=== PATIENT | female | born 1995 ===

== ENCOUNTER 2021-02-09 07:53 | Emergency (ER) | payer OTHER, SELFPAY ==
[2021-02-09 08:16] VITALS: BP 135/82; PULSE 100; RESP 17; TEMP 36.1; O2SAT 99; BMI 37.3
--- NOTE | 2021-02-09 08:20 | ED_ITS ---
HPI - Wound/Laceration General Chief Complaint: Wound/Laceration Stated Complaint: cyst Time Seen by Provider: 02/09/21 08:16 Source: patient Mode of arrival: ambulatory Limitations: no limitations History of Present Illness HPI narrative: Patient comes emergency room complaining of an abscess in the right labia majora. Patient states it started approximately 5 days ago. Two days ago patient went to [facility], patient states that she was told that the cyst was not big enough for drainage, she was started on doxycycline. Patient states since then the abscess grew in size and is becoming more painful. Patie nt denies fever chills. Patient states this is the 2nd time she has had an abscess in the same area. Related Data Previous Rx's Medication Instructions Recorded cephalexin [Keflex] 750 mg PO BID #7 cap 02/09/21 Allergies Allergy/AdvReac Type Severity Reaction Status Date / Time Sulfa (Sulfonamide Allergy Rash Verified 02/09/21 08:16 Antibiotics) Review of Systems Review of Systems: Constitutional : No Weight loss, No Fever, No Chills, No Night Sweats, No Fatigue, No Malaise ENT/Mouth : No Hearing loss, No Ear Pain, No Nasal Congestion, No Sinus Pain, No Hoarseness, No sore throat, No Rhinorrhea, No Swallowing Difficulty Eyes: No Eye Pain, No Swelling, No Redness, No Foreign Body, No Discharge, No Vision Changes Cardiovascular : No Chest Pain, No SOB, No Dyspnea on Exertion, No Orthopnea, No Edema, No Palpitations Respiratory : No Cough, No Sputum, No Wheezing, No Smoke Exposure, No Dyspnea Gastrointestinal : No Nausea, No Vomiting, No Diarrhea, No Constipation, No abdominal Pain, No Hematochezia, No Melena Genitourinary : no irregular bleeding, No Dysuria, No Urinary Frequency, No Hematuria, No Urinary Incontinence, No Urgency, No Flank Pain, No Urinary Flow Changes, No Hesitancy, complaining of cyst in the right labia Musculoskeletal : No joint pain, No Myalgias, No Joint Swelling Skin : No Skin Lesions, No rash Neuro : No Weakness, No Numbness, No Paresthesias, No Loss of Consciousness, No Dizziness, No Headache Psych : No Anxiety/Panic, No Depression, No SI/HI/AH/VH, No Social Issues, Heme/Lymph: No Bruising, No Bleeding,No Lymphadenopathy Endocrine : No Polyuria, No Polydipsia, No Temperature Intolerance [facility] Social History Social History Advance Directives: No Advance Directives Information Provided: No Physical Exam Vital Signs: Vital Signs: Last Vital Signs Temp 97 F 02/09/21 08:16 Pulse 100 02/09/21 08:16 Resp 17 02/09/21 08:16 BP 135/82 02/09/21 08:16 Pulse Ox 99 02/09/21 08:16 Body Mass Index 37.3 Appearance: Alert. Oriented X3. No acute distress. Eyes: Pupils equal, round and reactive to light. ENT: Pharynx normal. Neck: Normal inspection. Neck supple. No lymph nodes noted. No crepitus CVS: Normal heart rate and rhythm. Pulses normal. Normal S1 and S2 Respiratory: No respiratory distress. Breath sounds normal. No Wheezing. No rales Abdomen: Soft and nontender. No rigidity. No distention. good BS x4 : 3 cm x 2 cm cm in the left labia, no draining, very tender to touch Skin: Skin warm and dry. Normal skin color. Normal skin turgor. Extremities: No lower extremity edema. No Lacerations. No Rash Neuro: Oriented X 3. No motor deficit. No sensory deficit. Moving all extermities. No slurred speech. Course Course Course Narrative: Patient tolerated well the procedure, patient instructed to follow-up with her PCP and OBGYN within 48 hours for wound check. Procedures Abscess I/D Site: other (Right labia majora) Side (if applicable): left Local Anesthetic: lidocaine 2% Amount of anesthesia used (mL): 20 Technique: incised with blade Amount of fluid expressed (mL): 20 Sent for culture/gram staining?: No Irrigation: Yes Packing used?: femi drain Discharge Plan Discharge Clinical Impression: Bartholin gland cyst Patient Disposition: Home, Self-Care Instructions: Bartholin Cyst (ED) Additional Instructions: Continue taking the doxycycline. Add cephalexin which was sent to pharmacy. Please call your OBGYN to schedule an appointment for wound check within 48 hours. Please follow-up with your primary care physician tomorrow. If you have any worsening or new symptoms, please return to the emergency room or call 911 Prescriptions: New cephalexin [Keflex] 750 mg capsule 750 mg PO BID Qty: 7 RF: 0
[2021-02-09] MEDS: Lidocaine HCl 2 % MPF 5 ML VIAL 10 ML INFILTRATI (09:41)
== END 2021-02-09 09:50 | disposition home or self-care (01) ==
PROVIDERS: Emergency Provider Emergency Medicine
DX: N76.4 Abscess of vulva (principal); N75.0 Cyst of Bartholin's gland
CPT/HCPCS: 56405; 99283; 99284

== ENCOUNTER 2023-10-25 15:22 | Emergency (ER) | payer OTHER, SELFPAY ==
--- NOTE | ~2023-10-25 | XR_ITS ---
EXAMINATION: XR CHEST CLINICAL INFORMATION: Productive cough for 5 days. COMPARISON: None available. TECHNIQUE: 2 views of the chest were obtained. FINDINGS: The cardiomediastinal silhouette is stable. There is no focal lung consolidation or pleural effusion. There is mild curvature of the thoracic spine convex to the right. Soft tissues are unremarkable. XR/XR chest 2V IMPRESSION: No active cardiopulmonary disease.
[2023-10-25 16:02] VITALS: BP 143/73; PULSE 87; RESP 20; TEMP 36.5; O2SAT 100; BMI 40.2
--- NOTE | 2023-10-25 16:02 | ED.GENADULT ---
HPI - General Adult General Chief complaint: Upper Respiratory Symptoms Stated complaint: cough ? rsv Source: patient Mode of arrival: ambulatory Limitations: no limitations History of Present Illness HPI narrative: Patient is a 28-year-old female presenting to the ED with complaint of productive cough since Sunday. States both of her daughters have recently tested positive for RSV. Denies fevers. Denies any other symptoms. complaint: cough Onset (ago): day(s) Location: chest Associated symptoms: denies other symptoms Treatments prior to arrival: none Related Data Previous Rx's Medication Instructions Recorded cephalexin 750 mg capsule (Keflex) 750 mg PO BID #7 caps 02/09/21 albuterol sulfate 90 mcg/actuation 2 puff inhalation Q4-6H PRN 10/25/23 aerosol inhaler shortness of breath or wheezing #6.7 grams benzonatate 100 mg capsule 100 mg PO TID PRN cough #14 caps 10/25/23 Allergies Allergy/AdvReac Type Severity Reaction Status Date / Time Sulfa (Sulfonamide Allergy Rash Verified 02/09/21 08:16 Antibiotics) Review of Systems Review of Systems: As per HPI Yes all other systems are reviewed and are negative Constitutional: Constitutional: Reports as per HPI [facility] Social History Social History Advance Directives: No Advance Directives Information Provided: No Physical Exam ED Vital Signs: Vital Signs - 24 hr 10/25/23 16:02 Temperature 97.7 F Pulse Rate 87 Respiratory Rate 20 Blood Pressure 143/73 H Pulse Oximetry 100 Oxygen Delivery Method Room Air BMI result Body Mass Index 40.2 Vital signs have been reviewed and appear to be correct. Blood pressure elevated. Heart rate normal. Respiratory rate normal. Temperature normal. Oxygen saturation normal. Const General: cooperative, healthy appearing and no acute distress Orientation/consciousness: oriented to person, oriented to place, oriented to time and patient oriented x3 Limitations: no limitations HENMT Head: Yes normocephalic and Yes atraumatic Ears: external ears normal General nose exam: Normal external nose present Face and sinus: Yes face symmetric Mouth: oropharynx normal and moist mucous membranes Throat: Yes uvula midline Eyes Pupils: Equal, round and reactive pupils present Neck Neck: Yes normal visual inspection and Yes supple Resp Effort & Inspection: normal respiratory effort and able to speak in complete sentences Auscultation: clear to auscultation bilaterally and wheezes scattered wheezes Cardio Rate: regular rate Rhythm: regular rhythm Heart sounds: S1 normal heart sound present and S2 normal heart sound present GI Palpation (GI): Soft to palpation and nontender Auscultation: normoactive bowel sounds General: Yes no CVA tenderness Back/Spine/Pelvis Back: no CVA tenderness Skin General skin exam: elasticity normal and turgor normal Neuro General: oriented to person, oriented to place, oriented to time, patient oriented x3, moves all extremities, no focal motor deficits and CN's II-XI intact bilaterally Cranial nerves: Yes Equal, round and reactive pupils present Cognition (Neuro): normal cognition Extrem General: Yes full ROM, Yes no pedal edema and Yes no calf tenderness Psych Mental Status: mental status grossly normal Affect: normal affect Thought process: Normal thought process present Medical Decision Making Medical Decision Making [facility] Narrative: Patient is a 28-year-old female presenting to the ED with complaint of productive cough since Sunday. On exam patient is awake, A+Ox3, VS WNL, afebrile, normal neurological exam without focal deficits, physical exam findings as above. Given reported symptoms and physical exam findings, initial differential includes viral illness, covid, flu, rsv, bronchitis, pneumonia. RSV swab positive, all others negative. No evidence of pneumonia on CXR. All results discussed with patient and all questions answered. Will prescribe benzonatate and albuterol inhaler. Instructed patient to wear a mask around others while symptomatic, ensure adequate rest, fluid intake, and follow up with PCP. Return precautions discussed. Patient verbalized understanding of and agreement with plan of care. Differential Diagnosis Differential Diagnoses: The differential diagnosis associated with the presentation includes As per [facility] Lab Data [facility] Lab Attestation statement: I reviewed the patient's lab results. As per [facility] Labs: Lab Results 10/25/23 Range/Units 16:48 Influenza Type A (PCR) NEGATIVE (Negative) Influenza Type B (PCR) NEGATIVE (Negative) RSV RNA Qual (PCR) POSITIVE A (Negative) SARS-CoV-2 RNA (RT-PCR) NEGATIVE (Negative) Independent Interpretation I performed an independent interpretation of an: Plain X-Ray Interpretation: No evidence of pneumonia Radiology Impression Discussion of test interpretation with radiology: I have reviewed the radiologist's reading. Radiologist Impression: XR/XR chest 2V IMPRESSION: No active cardiopulmonary disease. External Record Review External record reviewed: Inpatient record, Office record and Outpatient record Prescription Management I considered prescription management with: Other Discharge Plan Discharge Clinical Impression: RSV infection Patient Disposition: Home, Self-Care Instructions: Respiratory Syncytial Virus (ED) Additional Instructions: You were evaluated in the emergency department today for cough. Your Covid and flu tests were negative and your x-ray did not show evidence of pneumonia. Your symptoms are due to RSV which is a viral illness which will resolve on its own with time and rest. You should ensure adequate fluid intake, and can use Tylenol 650 mg or ibuprofen 600 mg every 6 hours as needed for fever or discomfort. Please follow-up with your primary care provider this week. Return to the emergency department if you develop chest pain, worsening shortness of breath, difficulty swallowing, fever 100.4? F or greater or any other concerning symptoms. Prescriptions: New benzonatate 100 mg capsule 100 mg PO TID PRN (Reason: cough) Qty: 14 0RF albuterol sulfate 90 mcg/actuation HFA aerosol inhaler 2 puff inhalation Q4-6H PRN (Reason: shortness of breath or wheezing) Qty: 6.7 0RF No Action cephalexin [Keflex] 750 mg capsule 750 mg PO BID Qty: 7 0RF Stand Alone Forms: Work/School Release
[2023-10-25 17:47] LABS: Influenza A PCR NEGATIVE (Negative); Influenza B PCR NEGATIVE (Negative); Resp Syncy Virus RNA Qual PCR POSITIVE (Negative); SARS COV2 PCR INHOUSE NEGATIVE (Negative)
== END 2023-10-25 19:04 | disposition home or self-care (01) ==
PROVIDERS: Registered Nurse Emergency; Emergency Provider Emergency Medicine
DX: J22 Unspecified acute lower respiratory infection (principal); B97.4 Respiratory syncytial virus as the cause of diseases classified elsewhere; R05.9 Cough, unspecified; Z20.822 Contact with and (suspected) exposure to COVID-19; Z20.828 Contact with and (suspected) exposure to other viral communicable diseases
CPT/HCPCS: 0241U; 71046; 99281; 99283

== ENCOUNTER 2024-03-07 18:01 | Emergency (ER) | payer OTHER, SELFPAY ==
[2024-03-07 18:19] VITALS: BP 99/60; PULSE 84; RESP 18; TEMP 37.2; O2SAT 98; BMI 36.9
--- NOTE | 2024-03-07 18:51 | ED.GENADULT ---
HPI - General Adult General Chief complaint: Skin/Abscess/Foreign Body Stated complaint: Cyst Time Seen by Provider: 03/08/24 00:19 Source: patient Mode of arrival: ambulatory Limitations: no limitations History of Present Illness HPI narrative: Patient comes to the emergency room complaining of a Bartholin cyst. Patient stated about 3 years ago she had a cyst in the same area. For the last 5 days, patient has noticed that there was an abscess growing in the right labia majora. However, on her way to the hospital, it popped by itself and it has been draining pus for the last couple of hours and the pain has significantly decreased. Patient denies fever chills Related Data Previous Rx's ?Medication ?Instructions ?Recorded cephalexin 750 mg capsule (Keflex) 750 mg PO BID #7 caps 02/09/21 albuterol sulfate 90 mcg/actuation 2 puff inhalation Q4-6H PRN 10/25/23 aerosol inhaler shortness of breath or wheezing #6.7 grams benzonatate 100 mg capsule 100 mg PO TID PRN cough #14 caps 10/25/23 Allergies Allergy/AdvReac Type Severity Reaction Status Date / Time Sulfa (Sulfonamide Allergy Rash Verified 03/07/24 18:22 Antibiotics) Review of Systems Review of Systems: Constitutional : No Weight loss, No Fever, No Chills, No Night Sweats, No Fatigue, No Malaise ENT/Mouth : No Hearing loss, No Ear Pain, No Nasal Congestion, No Sinus Pain, No Hoarseness, No sore throat, No Rhinorrhea, No Swallowing Difficulty Eyes: No Eye Pain, No Swelling, No Redness, No Foreign Body, No Discharge, No Vision Changes Cardiovascular : No Chest Pain, No SOB, No Dyspnea on Exertion, No Orthopnea, No Edema, No Palpitations Respiratory : No Cough, No Sputum, No Wheezing, No Smoke Exposure, No Dyspnea Gastrointestinal : No Nausea, No Vomiting, No Diarrhea, No Constipation, No abdominal Pain, No Hematochezia, No Melena Genitourinary : Complaining of an abscess in the right labia majora, no irregular bleeding, No Dysuria, No Urinary Frequency, No Hematuria, No Urinary Incontinence, No Urgency, No Flank Pain, No Urinary Flow Changes, No Hesitancy Musculoskeletal : No joint pain, No Myalgias, No Joint Swelling Skin : No Skin Lesions, No rash Neuro : No Weakness, No Numbness, No Paresthesias, No Loss of Consciousness, No Dizziness, No Headache Psych : No Anxiety/Panic, No Depression, No SI/HI/AH/VH, No Social Issues, Heme/Lymph: No Bruising, No Bleeding,No Lymphadenopathy Endocrine : No Polyuria, No Polydipsia, No Temperature Intolerance [facility] Social History Social History Advance Directives: No Advance Directives Information Provided: No Do you have a plan to hurt others: No Plan Physical Exam ED Vital Signs: Vital Signs - 24 hr 03/07/24 18:19 03/07/24 21:27 Temperature 98.9 F 99 F Pulse Rate 84 80 Respiratory Rate 18 20 Blood Pressure 99/60 126/68 Pulse Oximetry 98 100 Oxygen Delivery Method Room Air Room Air BMI result Body Mass Index 36.9 Const Other: Appearance: Alert. Oriented X3. No acute distress. Eyes: Pupils equal, round and reactive to light. ENT: Pharynx normal. Neck: Normal inspection. Neck supple. No lymph nodes noted. No crepitus CVS: Normal heart rate and rhythm. Pulses normal. Normal S1 and S2 Respiratory: No respiratory distress. Breath sounds normal. No Wheezing. No rales Abdomen: Soft and nontender. No rigidity. No distention. : Patient has a Bartholin's cyst in the right IV majora that is actively draining Skin: Skin warm and dry. Normal skin color. Normal skin turgor. Extremities: No lower extremity edema. No Lacerations. No Rash Neuro: Oriented X 3. No motor deficit. No sensory deficit. Moving all extremities. No slurred speech. CN 2 through 12 grossly intact Psych: calm, cooperative, normal affect Course Course Course Narrative: RME performed by Kelly Birch PA-C. Patient is a 28 year old assigned female at presenting to the emergency department with a right sided labial cyst that is actively draining. Detailed physical exam and review of systems are deferred to the concrete swimming pool installer. Patient placed back in the waiting room pending room availability. Medical Decision Making Medical Decision Making [facility] Narrative: -patient has a right lenses in the right labia majora. With a little bit of pressure, more serosanguineous/purulent drainage was expressed. At this time, the abscesses completely flat and no more drainage is present. -discussed with the patient that we will give her p.o. antibiotics. At this time we will not insert a word catheter. However, I discussed with the patient that if the abscess recurs in the next couple of days, she needs to come and have it drained and a catheter needs to be placed. Patient agrees with plan. Differential Diagnosis Differential Diagnoses: The differential diagnosis associated with the presentation includes (Bartholin cyst, abscess) Discharge Plan Discharge Clinical Impression: Bartholin cyst Patient Disposition: Home, Self-Care Instructions: Bartholin Cyst (ED) Additional Instructions: If the wound closes up and starts feeling up with fluid again and becoming more painful, please return immediately to emergency room as it may have to be reopened, drained and a catheter with have to be inserted. Please follow-up with your primary care physician tomorrow. If you have any worsening or new symptoms, please return to the emergency room or call 911 Prescriptions: No Action cephalexin [Keflex] 750 mg capsule 750 mg PO BID Qty: 7 0RF benzonatate 100 mg capsule 100 mg PO TID PRN (Reason: cough) Qty: 14 0RF albuterol sulfate 90 mcg/actuation HFA aerosol inhaler 2 puff inhalation Q4-6H PRN (Reason: shortness of breath or wheezing) Qty: 6.7 0RF Stand Alone Forms: Work/School Release Print Language: Portuguese
[2024-03-07 21:27] VITALS: BP 126/68; PULSE 80; RESP 20; TEMP 37.2; O2SAT 100
[2024-03-08] MEDS: cephALEXin 500 MG CAPSULE PO (01:02)
[2024-03-08] MEDS: Doxycycline Monohydrate 100 MG CAPSULE PO (01:02)
[2024-03-08 01:04] VITALS: BP 118/63; PULSE 74; RESP 14; TEMP 37.1; O2SAT 99
[2024-03-08 01:06] VITALS: BP 118/63; PULSE 74; RESP 14; TEMP 37.1; O2SAT 99
== END 2024-03-08 01:07 | disposition home or self-care (01) ==
PROVIDERS: Emergency Provider Emergency Medicine
DX: N75.0 Cyst of Bartholin's gland (principal)
CPT/HCPCS: 99283; 99284